=== PATIENT | male | born 1975 | race Two or more races ===

== ENCOUNTER 2016-12-27 19:34 | Emergency (ER) | payer SELFPAY ==
[2016-12-27] MEDS ORDERED: METHOCARBAMOL 750 MG TABLET ONE (21:39)
[2016-12-27] MEDS ORDERED: PREDNISONE 20 MG TABLET ONE (21:39)
== END 2016-12-27 21:54 | disposition home or self-care (01) ==
LOC: ED 19:34
DX: M54.12 Radiculopathy, cervical region (principal); M25.512 Pain in left shoulder; M25.511 Pain in right shoulder
CPT/HCPCS: 99283 ×2; J7512; A9270